=== PATIENT | male | born 1955 | race Caucasian/White ===

== ENCOUNTER 2023-10-21 12:57 | Outpatient (CLI) | payer MEDICARE, OTHER ==
--- NOTE | 2023-10-21 14:02 | Sleep Patient Instructions ---
Sleep Center Visit Summary - Patient Visit Information Reason for Visit: Initial consult for evaluation of sleep disordered breathing and other sleep issues. - Patient Instructions Instructions Attached: Sleep Study Additional Instructions: You will be completing a sleep study, either an in-lab polysomnography (PSG) or home sleep study (HST). You will follow-up in the sleep care office after the sleep study is completed to hear the results and talk about therapy, if needed. You will be called by our office staff to schedule this appointment, but you may contact us with any questions. - Clinic Information Contact: [facility] [address] [place] [address] [email or web address] T: [phone]
--- NOTE | 2023-10-21 14:09 | SLEEP CARE CONSULTATION ---
Information from patient questionnaire entered by Tod Garvey. I have reviewed and concur with the information entered by Tod Garvey. This document represents the service I personally performed and the decisions made by me, Ruma Novak ARNP. History of Present Illness Service Date and Time: 10/21/2023 1257 Reason for Visit: New patient Accompanied by: Spouse Chief Complaint: reports: Unrefreshed sleep, Snoring, Observed pauses in breathing, Frequent awakenings at night Date of Onset: ACCORDING TO OVER 10YRS Usual bedtime: 2300 Time it takes to fall asleep: NO TIME AT ALL Snores at night: Yes Observed to quit breathing while asleep: Yes Sleeps alone due to snoring: Yes Number of times waking at night: 2-3 Reasons for waking at night: reports: Snoring (according to ), Pain, Bathroom, Other ( SNORING). denies: Choking, Gasping for air Toss, Turn, or Twitch while sleeping: No Recalls having dreams: Yes Usually gets out of bed at: WORKDAYS 0540 OTHER [place] 0700 Feels refreshed in the morning: No Morning headache: No Sleepy or fatigued during the day: Yes Ever fallen asleep while driving: No Takes day naps: No Prior sleep studies: Yes (AT HOME SPRING OR SUMMER 2006) Additional HPI information: I had the pleasure of seeing WILDER NICHOLE today regarding the possibility of him having a sleep disorder. His current complaints are unrefreshed sleep, snori ng, observed pauses in breathing and frequent night awakenings. His says he snores loudly, he can be heard in other room through closed doors. She will sometimes sleep separate due to the snoring. He will also stop breathing in his sleep and will talk in his sleep. She says he is restless in his sleep. He has hit out in sleep a few times when dreaming. He says he does not wake up feeling refreshed. He does not take naps. He can go to sleep quickly and after waking up during night can fall back to sleep easily as well. He had a sleep study before he got out of the service which she says was borderline at the time. 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 Patient is and lives in [place]. Have you smoked in the past 12 months: No Alcohol use: No Caffeine use: Yes Caffeine amount and frequency: 2 CUPS DAILY Family History Family history of sleep disordered breathing: Yes Family Hx Sleep Apnea: Mother: Snoring, Father: Snoring, Sibling: Snoring, Sleep apnea - Treated Allergies and Home Medications Known drug allergies: No Drug allergies reviewed: Yes Home medication list reviewed: Yes (as listed) Allergy and home medication list: Allergies No Known Drug Allergies Allergy (Verified 10/21/23 13:09) Home Medications Cholecalciferol (Vitamin D3) [Vitamin D3] See Rx Instructions .ROUTE .COMPLEX 10/21/23 [History Confirmed 10/21/23] Rabeprazole Sodium See Rx Instructions .ROUTE .COMPLEX 10/21/23 [History Confirmed 10/21/23] Rosuvastatin Calcium See Rx Instructions .ROUTE .COMPLEX 10/21/23 [History Confirmed 10/21/23] Review of Systems Weight gain over past 5 years: 30 Cardiovascular: denies: high blood pressure Gastrointestinal: reports: heartburn Neurological: denies: headaches Psychiatric: denies: anxiety, depression Ear/Nose/Throat: reports: dry mouth/throat (daily, very dry; drinks water). denies: tonsillectomy Physical Exam Vital signs obtained and entered by: TOD Upton MA Blood Pressure: 145/87 (LEFT ARM) Cuff size: long Heart Rate: 69 O2 Saturation: 97 Height: 6 ft Weight: 269 lb Body Mass Index: 36.4 BMI Classification: Obese Neck circumference: 18 Mouth and throat: narrow oropharynx Soft palate: long Hard palate: normal Uvula: normal Uvula visualization: 0% Mallampati Class IV Tongue: enlarged in size with teeth reyes on lateral edges Tonsils: 1+ Neck: normal w/o lymphadenopathy or thyromegaly Heart: regular rate and rhythm Lungs: clear bilaterally Impression and Plan 1. Suspected Obstructive Sleep Apnea-Hypopnea Syndrome, as suggested by a history of loud and irregular snoring, observed cessation of breath while asleep, frequent awakening during the night and unrefreshed sleep. Narrow oropharynx and obesity are common predisposing factors for obstructive sleep apnea-hypopnea syndrome. I recommend proceeding to polysomnography to confirm the diagnosis and to assess severity. If the patient has significant sleep disordered breathing, a manual CPAP titration study will also be performed to find the optimal treatment pressure. I informed the patient of what the sleep studies involve and after some discussion, obtained agreement to proceed. The pathophysiology of obstructive sleep apnea-hypopnea syndrome was discussed with the patient and health risks of cardiovascular and cerebrovascular disease if not treated. Risks of drowsy driving discussed in detail and patient advised to avoid long distance driving and to puller over at the first sign of drowsiness. Patient agreed to plan. * Schedule polysomnography * Avoid long distance driving or driving when feeling sleepy. * Avoid alcohol, sedative and muscle relaxant around bedtime. * Attempt to lose weight. * Review instructions provided by trained office staff on how to prepare for the sleep study. * Return for follow-up after sleep study completed. Counseling Topics: Weight loss health impact Plan: PSG and follow up Visit Type: In Office Time Spent with Patient (minutes): 30 Provider Statement: I spent 100% of the Face to Face Visit with the patient with greater than 50% spent counseling the patient and coordination of care.
[2023-10-21 14:22] VITALS: BP 145/87; O2SAT 97
== END 2023-10-21 12:58 | disposition home or self-care (01) ==
LOC: SC 12:57
PROVIDERS: ATTEND Nurse Practitioner Family
DX: G47.8 Other sleep disorders (principal); R06.83 Snoring; R06.81 Apnea, not elsewhere classified; E66.9 Obesity, unspecified; Z68.36 Body mass index [BMI] 36.0-36.9, adult
CPT/HCPCS: 99203; G0463; 99212

== ENCOUNTER 2023-11-05 19:46 | Outpatient (CLI) | payer MEDICARE, OTHER | END 2023-11-05 19:47 | disposition home or self-care (01) | LOC: SC 19:46 | PROVIDERS: ATTEND Nurse Practitioner Family | DX: G47.33 Obstructive sleep apnea (adult) (pediatric) (principal); E66.9 Obesity, unspecified; Z68.36 Body mass index [BMI] 36.0-36.9, adult | CPT/HCPCS: 95810 ==

== ENCOUNTER 2023-12-06 14:46 | Outpatient (CLI) | payer MEDICARE, OTHER ==
--- NOTE | 2023-12-06 15:43 | Sleep Patient Instructions ---
Sleep Center Visit Summary - Patient Visit Information Reason for Visit: Sleep study follow-up - Patient Instructions Additional Instructions: You are being started on CPAP therapy with pressure setting at 4-15 cmH2O. You will need to call the sleep care office to set up your follow up once you have your CPAP machine to check compliance and response to therapy at that time. You may call the office with any concerns about pressure feeling too low or too much for adjustment, if needed. You should contact DME supplier for any questions or concerns about mask or equipment. Please call office to schedule a follow up appointment in the sleep care office one month after obtaining new device. - Clinic Information Contact: [facility] [address] [place] [address] [email or web address] T: [phone]
--- NOTE | 2023-12-06 15:47 | SLEEP CARE CONSULTATION ---
Information from patient questionnaire entered by Tejal Garvey. I have reviewed and concur with the information entered by Tejal Garvey. This document represents the service I personally performed and the decisions made by me, Ruma Novak ARNP. History of Present Illness Service Date and Time: 12/06/2023 1446 Accompanied by: Spouse Initial Elcho Sleepiness Scale score: 2 (10/21/23) Current Elcho Sleepiness Scale score: 7 (12/06/23) Additional HPI information: WILDER NICHOLE returns with spouse for follow up and results of the recently performed polysomnography. The sleep study done on 11/05/23 showed mild obstructive sleep apnea with an average AHI of 8.1 and mac oxygen saturation of 85%. I explained the pathophysiology behind obstructive sleep apnea. We then spent quite a bit of time discussing different treatment options. For mild obstructive sleep apnea, surgery and oral appliance are alternatives to nasal CPAP therapy but in moderate or severe cases, nasal CPAP is the most effective and reliable treatment. Because apnea is primarily in supine position, then positional management therapy could be effective. Methods discussed such as positioning with pillows, using a T-shirt with tennis balls in the back or commercial products that have a pillow format on back to prevent supine sleep. I reviewed the impact of weight changes on sleep apnea and strongly recommended losing weight. After some discussion, the patient opted to go with the nasal CPAP therapy. Nasal autoCPAP set at 4-15 cmH20 will be ordered with rationale explained. A manual titration study will be ordered if unable to find optimal pressure with office adjustments. I explained how CPAP machine works and what to expect when using the machine. Using CPAP every night in order to get used to it was emp hasized. Patient advised to put CPAP mask on before getting into bed so as not to fall asleep without CPAP. To assist acclimation to CPAP use, it could also be used for a short time during day while reading or watching TV. The patient was instructed to call the CPAP supplier to discuss any mechanical problem that may occur. If the mask given is uncomfortable or is difficult to keep on through the night even with adjustment, contact the CPAP supplier as many will replace with another mask style if notified before 30 days. If snoring or perceives is not getting enough air or too much air from the machine, notify this office. Patient does not drink alcohol. Patient was cautioned about risks of drowsy driving until sleepiness symptoms resolve. Patient denies drowsy driving. Sleep Study - Results Type of Sleep Study: Polysomnography (COMPLETED 11/05/23) Prior sleep studies: Yes (AT HOME SPRING OR SUMMER 2006) Polysomnography/Home Sleep Study results: IMPRESSION: The quality of the study is good. 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 The sleep architecture was normal. Respiratory monitoring showed mild obstructive sleep apnea-hypopnea (AHI = 8.1) associated with oxyhemoglobin desaturation and mild hypoxia (mac oxygen saturation of 85%) but not sleep fragmentation. The respiratory events occurred almost exclusively during supine REM sleep (supine AHI = 24.8; non-supine = 3.18). Snore was light in intensity. There was no significant periodic leg movement of sleep. Cardiac rhythm was normal sinus rhythm without significant arrhythmia. No abnormal behavior (parasomnia) observed during the night. Allergies and Home Medications Known drug allergies: No Drug allergies reviewed: Yes Home medication list reviewed: Yes (no changes) Allergy and home medication list: Allergies No Known Drug Allergies Allergy (Verified 12/06/23 14:49) Review of Systems Review of systems same as previous: Yes (NO CHANGE) Physical Exam Vital signs obtained and entered by: RENO Upton MA Blood Pressure: 155/86 (LEFT ARM) Cuff size: long Heart Rate: 59 O2 Saturation: 98 Height: 6 ft Weight: 275 lb 6.4 oz Body Mass Index: 37.3 BMI Classification: Obese Impression and Plan 1. Obstructive Sleep Apnea-Hypopnea Syndrome, mild, with lowest oxygen saturation of 85%. Obviously this is the cause of the patients symptoms of unrefreshed sleep, and excessive daytime sleepiness. Positive pressure therapy could benefit gastric reflux. As mentioned above, the patient will be started on nasal autoCPAP therapy with pressure set at 4-15 cmH2O. A manual titration study will be completed if unable to find optimal treatment pressure with office adjustments. Compliance guidelines also reviewed. A copy of compliance guidelines will be given for reference at check out. Because the apnea is more severe supine, I instructed to avoid sleeping supine using pillow positioning until able to start CPAP use. 2. Hypoxemia, mild, with a mac oxygen saturation of 85% and 1.9 minutes spent under 90%. The baseline oxygen saturation was normal with an average oxygen saturation of 93%. 3. Obesity, unspecified. Currently patients BMI is 37.3. Obesity increases the risk of apnea, CPAP pressure requirements and overall health risks especially cardiovascular and diabetes. Thus patient is advised to lose weight. * Nasal auto CPAP therapy, pressure at 4-15 cm H2O. * Attempt to lose weight. * Avoid supine sleep until using CPAP. * The patient is again cautioned about driving until sleepiness completely resolves. * Return one month after CPAP obtained. I will assess response to therapy and compliance at that time. Counseling Topics: Weight loss health impact Prescriptions: Auto CPAP Visit Type: In Office Time Spent with Patient (minutes): 23 Provider Statement: I spent 100% of the Face to Face Visit with the patient with greater than 50% spent counseling the patient and coordination of care.
[2023-12-06 15:56] VITALS: BP 155/86; O2SAT 98
== END 2023-12-06 14:47 | disposition home or self-care (01) ==
LOC: SC 14:46
PROVIDERS: ATTEND Nurse Practitioner Family
DX: G47.33 Obstructive sleep apnea (adult) (pediatric) (principal); E66.9 Obesity, unspecified; Z68.37 Body mass index [BMI] 37.0-37.9, adult; R09.02 Hypoxemia
CPT/HCPCS: 99213; G0463; 99212